=== PATIENT | male | born 1970 | race African-American/Black ===

== ENCOUNTER 2018-11-05 13:27 | Inpatient (IN) | payer OTHER ==
[2018-11-05 15:29] VITALS: BMI 20.2
--- NOTE | 2018-11-05 17:27 | HP ---
CIWA Score Nausea/Vomitin Muscle Tremors: 2 Anxiety: 2 Agitation: 3 Paroxysmal Sweats: 2 Orientation: 0-Oriented Tacttile Disturbances: 1-Very Mild Itch/Numbness Auditory Disturbances: 0-None Visual Disturbances: 1-Very Mild Sensitivity Headache: 3-Moderate (5/10 temporal) CIWA-Ar Total Score: 17 - Admission Criteria OASAS Guidelines: Admission for Medically Managed Detox: Requires at least one of the followin. CIWA greater than 12 2. Seizures within the past 24 hours 3. Delirium tremens within the past 24 hours 4. Hallucinations within the past 24 hours 5. Acute intervention needed for co occurring medical disorder 6. Acute intervention needed for co occurring psychiatric disorder 7. Severe withdrawal that cannot be handled at a lower level of care (continued vomiting, continued diarrhea, abnormal vital signs) requiring intravenous medication and/or fluids 8. Patient presents the following: CIWA greater than 12, Acute intervention needed for co-occurring med or psych disorder Admission Criteria Met: Admission criteria met Admission ROS S - [facility] Chief Complaint: alcohol withdrawal symptoms Allergies/Adverse Reactions: Allergies Allergy/AdvReac Type Severity Reaction Status Date / Time No Known Allergies Allergy Verified 11/05/18 15:23 History of Present Illness: 48 yo male with hx of alcohol dependence is here seeking detox d/t withdrawal symptoms, reports mandated to attended detox. Last detox treatment at [facility] three months ago. HTN : non-compliant with meds Psych: anxiety, no prior treatment Reports hx of ETOH blackouts with last episode one month ago. Denies hx of seizures. Denies SI /HI at this time Exam Limitations: No Limitations - Ebola screening Have you traveled outside of the country in the last 21 days: No Have you had contact with anyone from an Ebola affected area: No Do you have a fever: No - Review of Systems Constitutional: Chills, Diaphoresis, Changes in sleep, Unintentional Wgt. Loss EENT: reports: No Symptoms Reported Respiratory: reports: No Symptoms reported Cardiac: reports: No Symptoms Reported GI: reports: Diarrhea, Nausea, Poor Appetite, Poor Fluid Intake, Vomiting : reports: No Symptoms Reported Musculoskeletal: reports: Joint Pain Integumentary: reports: Other (r) Neuro: reports: Headache Endocrine: reports: No Symptoms Reported Hematology: reports: No Symptoms Reported Psychiatric: reports: Orientated x3, Agitated, Anxious Other Systems: Reviewed and Negative Patient History - Patient Medical History Hx Anemia: No Hx Asthma: No Hx Chronic Obstructive Pulmonary Disease (COPD): No Hx Cancer: No Hx Cardiac Disorders: No Hx Congestive Heart Failure: No Hx Hypertension: Yes (non-compliant with meds ) Hx Hypercholesterolemia: No Hx Pacemaker: No HX Cerebrovascular Accident: No Hx Seizures: No Hx Dementia: No Hx Diabetes: No Hx Gastrointestinal Disorders: No Hx Liver Disease: No Hx Genitourinary Disorders: No Hx Sexually Transmitted Disorders: No Hx Renal Disease (ESRD): No Hx Thyroid Disease: No Hx Human Immunodeficiency Virus (HIV): No Hx Hepatitis C: No Hx Depression: No Hx Suicide Attempt: No Hx Bipolar Disorder: No Hx Schizophrenia: No - Patient Surgical History Past Surgical History: Yes Hx Appendectomy: Yes - PPD History Previous Implant?: No Documented Results: Negative w/o proof PPD to be Administered?: Yes - Smoking Cessation Smoking history: Current every day smoker Have you smoked in the past 12 months: Yes Aproximately how many cigarettes per day: 10 Hx Chewing Tobacco Use: No Initiated information on smoking cessation: Yes 'Breaking Loose' booklet given: 11/05/18 - Substance & Tx. History Hx Alcohol Use: Yes Hx Substance Use: Yes Substance Use Type: Alcohol Hx Substance Use Treatment: Yes (Last detox treatment at [facility] three months ago. ) - Substances abused Alcohol Substance route: Oral Frequency: 3-6 times per week Amount used: 2 pt. vodka, 1 case beers ( 12 oz cans) Age of first use: 21 Date of last use: 11/05/18 Family Disease History - Family Disease History Family Disease History: Heart Disease: Grandparent (HTN), Father (HTN), Mother ( HTN ) Admission Physical Exam S - Vital Signs Vital Signs: Vital Signs - 24 hr 11/05/18 15:24 Temperature 98 F Pulse Rate 87 Respiratory 18 Rate Blood Pressure 175/120 H - Physical General Appearance: Yes: Appropriately Dressed, Mild Distress, Irritable, Anxious HEENTM: Yes: EOMI, Hearing grossly Normal, Normal ENT Inspection, Normocephalic , Normal Voice, BRYANT, Pharynx Normal, Tm's normal Respiratory: Yes: Chest Non-Tender, Lungs Clear, Normal Breath Sounds, No Respiratory Distress, No Accessory Muscle Use Neck: Yes: Within Normal Limits Breast: Yes: Breast Exam Deferred Cardiology: Yes: Regular Rhythm, Regular Rate Abdominal: Yes: Normal Bowel Sounds, Non Tender, Flat, Soft, Other (+ abdominal hernia retractable) Genitourinary: Yes: Within Normal Limits Back: Yes: Normal Inspection Musculoskeletal: Yes: full range of Motion, Gait Steady, Pelvis Stable Extremities: Yes: Normal Capillary Refill, Normal Inspection, Normal Range of Motion, Non-Tender Neurological: Yes: glassware finisher II-XII NML intact, Fully Oriented, Alert, Motor Strength 5/5, Depressed Affect Integumentary: Yes: Normal Color, Warm, Diaphoresis Lymphatic: Yes: Within Normal Limits - Diagnostic (1) Alcohol dependence with uncomplicated withdrawal Current Visit: Yes Status: Acute (2) Essential (primary) hypertension Current Visit: Yes Status: Chronic (3) Nicotine dependence Current Visit: Yes Status: Acute Qualifiers: Nicotine product type: cigarettes Cleared for Admission S - Detox or Rehab [facility] Level of Care: Medically Managed Detox Regimen/Protocol: Librium Breathalyzer - Breathalyzer Breathalyzer: 0.020 Urine Drug Screen - Test Device Lot number: [id number] Expiration date: 06/08/20 - Control Is test valid?: Yes - Results Drug screen NEGATIVE: No Urine drug screen results: BZO-Benzodiazepines Inpatient Rehab Admission - Rehab Decision to Admit Inpatient rehab admission?: No
[2018-11-05] MEDS ORDERED: chlordiazePOXIDE HCL 25 MG CAPSULE PO PRN (17:32)
[2018-11-05] MEDS ORDERED: MENTHOL/PHENOL 1 EACH UD MM PRN (17:32)
[2018-11-05] MEDS ORDERED: hydrOXYzine PAMOATE 25 MG CAPSULE (FP) PO PRN (17:32)
[2018-11-05] MEDS ORDERED: IBUPROFEN 400 MG TABLET (FP) PO PRN (17:32)
[2018-11-05] MEDS ORDERED: METHOCARBAMOL 500 MG TABLET PO PRN (17:32)
[2018-11-05] MEDS ORDERED: NICOTINE POLACRILEX 2 MG GUM BUC PRN (17:32)
[2018-11-05] MEDS ORDERED: ACETAMINOPHEN 325 MG TABLET (FP) PO PRN ×2 (17:32)
[2018-11-05] MEDS ORDERED: ONDANSETRON *ODT* 4 MG TABLET SL PRN (17:32)
[2018-11-05] MEDS ORDERED: BISMUTH SUBSALICYLATE 524 MG/30 ML UD PO PRN (17:32)
[2018-11-05] MEDS ORDERED: MAGNESIUM HYDROX 2400MG/30ML ORAL SUSPENSION 30 ML CUP PO PRN (17:32)
[2018-11-05] MEDS ORDERED: MELATONIN 5 MG TABLETS PO PRN (17:32)
[2018-11-05] MEDS ORDERED: MAG HYDROX/AL HYDROX/SIMETH 30 ML UNIT-DOSE CUP PO PRN (17:32)
[2018-11-05] MEDS ORDERED: MAGNESIUM CITRATE 300 ML BOTTLE PO PRN (17:32)
[2018-11-05] MEDS ORDERED: cloNIDine HCL 0.1 MG TABLET PO ONE (18:00)
[2018-11-05] MEDS ORDERED: THIAMINE HCL 100 MG TABLET (FP) PO SCH (22:00)
[2018-11-05] MEDS: cloNIDine HCL 0.1 MG TABLET PO SCH (22:48)
[2018-11-05] MEDS: GABAPENTIN 100 MG CAPSULE (FP) PO SCH (22:49)
[2018-11-05] MEDS: chlordiazePOXIDE HCL 25 MG CAPSULE PO SCH (22:50)
[2018-11-05] MEDS ORDERED: chlordiazePOXIDE HCL 25 MG CAPSULE PO SCH (23:00)
[2018-11-05] MEDS: HYDROCHLOROTHIAZIDE 25 MG TABLET (FP) PO SCH (23:38)
[2018-11-06 02:21] LABS: URINE APPEARANCE CLEAR; URINE BILIRUBIN NEGATIVE (NEGATIVE); URINE COLOR YELLOW; URINE GLUCOSE (UA) 1+ (NEGATIVE); URINE KETONE NEGATIVE (NEGATIVE); URINE LEUK ESTERASE NEGATIVE (NEGATIVE); URINE NITRITE NEGATIVE (NEGATIVE); URINE PROTEIN TRACE (NEGATIVE); URINE UROBILINOGEN 0.2 mg/dL (0.2-1.0)
[2018-11-06] MEDS: HYDROCHLOROTHIAZIDE 25 MG TABLET (FP) PO SCH (06:07)
[2018-11-06] MEDS: chlordiazePOXIDE HCL 25 MG CAPSULE PO SCH ×2 (06:07→10:21)
[2018-11-06] MEDS: GABAPENTIN 100 MG CAPSULE (FP) PO SCH (06:07)
--- NOTE | 2018-11-06 08:32 | EKG ---
Test Reason : Blood Pressure : / mmHG Vent. Rate : 069 BPM Atrial Rate : 069 BPM P-R Int : 132 ms QRS Dur : 086 ms QT Int : 434 ms P-R-T Axes : 063 020 048 degrees QTc Int : 465 ms NORMAL SINUS RHYTHM VOLTAGE CRITERIA FOR LEFT VENTRICULAR HYPERTROPHY ABNORMAL ECG NO PREVIOUS ECGS AVAILABLE Confirmed by MD MARIA R, CORI ([id number]) on 11/06/2018 8:32:25 AM Referred By: Confirmed By:CORI HECK MD
[2018-11-06 09:14] VITALS: BP 140/94; PULSE 82; TEMP 98.3
[2018-11-06 09:56] LABS: ALBUMIN 3.6 g/dl (3.4-5.0); ALK PHOS 59 U/L (45-117); ANION GAP 5 MMOL/L (8-16); BILIRUBIN,TOTAL 0.9 mg/dL (0.2-1); BLOOD UREA NITROGEN 18 mg/dL (7-18); CALCIUM 9.4 mg/dL (8.5-10.1); CHLORIDE 102 mmol/L (98-107); CO2 32 mmol/L (21-32); CREATININE 1.3 mg/dL (0.55-1.3); GLUCOSE,RANDOM 126 mg/dL (74-106); SGOT/AST 24 U/L (15-37); SGPT/ALT 18 U/L (13-61); SODIUM 138 mmol/L (136-145); TOT PROT 7.1 g/dl (6.4-8.2)
[2018-11-06 09:57] LABS: HEMATOCRIT 41.2 % (35.4-49); MCH 33.8 pg (25.7-33.7); MCHC 34.1 g/dl (32.0-35.9); MEAN CELL VOLUME 99.2 fl (80-96); MEAN PLT VOLUME 7.7 fl (7.5-11.1); PLATELET COUNT 334 K/MM3 (134-434); RBC 4.15 M/mm3 (4.00-5.60); RDW 13.9 % (11.9-15.9); WHITE BLOOD COUNT 9.4 K/mm3 (4.0-10.0)
[2018-11-06] MEDS ORDERED: NICOTINE 14 MG/24 HOURS TOPICAL PATCH TD SCH (10:00)
[2018-11-06] MEDS ORDERED: PRENATAL VITAMINS W/ FOLIC ACID TABLET (FP) PO SCH (10:00)
[2018-11-06] MEDS: cloNIDine HCL 0.1 MG TABLET PO SCH (10:21)
--- NOTE | 2018-11-06 12:50 | DS ---
[facility] Detox Discharge Summary Admission Date: 11/05/18 Discharge Date: 11/06/18 - History Present History: Alcohol Dependence Additional Comments: 48 years old male admitted on 11/05/18 for alcohol withdrawal stabilization patient's friend enter to patient's room, enforce unit rule and regulation patient is aggressive threatening toward staff counselor dual rate supervisor, nursing dual rate supervisor, security staff, team met with the patient an urgent discharge is necessary for this time in order to maintain the safety of the staff and patients as well as therapeutic environment. patient is alert no acute distress that he wants to go back to the court to discuss his mandatory act with the strategic partnership manager. - Physical Exam Results Vital Signs: Vital Signs Temperature 98.3 F 11/06/18 09:14 Pulse Rate 82 11/06/18 09:14 Respiratory Rate 18 11/06/18 09:14 Blood Pressure 140/94 11/06/18 09:14 O2 Sat by Pulse Oximetry (%) Pertinent Admission Physical Exam Findings: alcohol withdrawal sx Laboratory Last Values WBC 9.4 K/mm3 (4.0-10.0) 11/06/18 07:00 RBC 4.15 M/mm3 (4.00-5.60) 11/06/18 07:00 Hgb 14.0 GM/dL (11.7-16.9) 11/06/18 07:00 Hct 41.2 % (35.4-49) 11/06/18 07:00 MCV 99.2 fl (80-96) H 11/06/18 07:00 MCH 33.8 pg (25.7-33.7) H 11/06/18 07:00 MCHC 34.1 g/dl (32.0-35.9) 11/06/18 07:00 RDW 13.9 % (11.9-15.9) 11/06/18 07:00 Plt Count 334 K/MM3 (134-434) 11/06/18 07:00 MPV 7.7 fl (7.5-11.1) 11/06/18 07:00 Sodium 138 mmol/L (136-145) 11/06/18 07:00 Potassium 4.0 mmol/L (3.5-5.1) 11/06/18 07:00 Chloride 102 mmol/L (98-107) 11/06/18 07:00 Carbon Dioxide 32 mmol/L (21-32) 11/06/18 07:00 Anion Gap 5 MMOL/L (8-16) L 11/06/18 07:00 BUN 18 mg/dL (7-18) 11/06/18 07:00 Creatinine 1.3 mg/dL (0.55-1.3) 11/06/18 07:00 Creat Clearance w eGFR 59.43 (>60) 11/06/18 07:00 Random Glucose 126 mg/dL (74-106) H 11/06/18 07:00 Calcium 9.4 mg/dL (8.5-10.1) 11/06/18 07:00 Total Bilirubin 0.9 mg/dL (0.2-1) 11/06/18 07:00 AST 24 U/L (15-37) 11/06/18 07:00 ALT 18 U/L (13-61) 11/06/18 07:00 Alkaline Phosphatase 59 U/L (45-117) 11/06/18 07:00 Total Protein 7.1 g/dl (6.4-8.2) 11/06/18 07:00 Albumin 3.6 g/dl (3.4-5.0) 11/06/18 07:00 Urine Color Yellow 11/05/18 22:30 Urine Appearance Clear 11/05/18 22:30 Urine pH 7.0 (5.0-8.0) 11/05/18 22:30 Ur Specific [facility] 1.020 (1.010-1.035) 11/05/18 22:30 Urine Protein Trace (NEGATIVE) 11/05/18 22:30 Urine Glucose (UA) 1+ (NEGATIVE) H 11/05/18 22:30 Urine Ketones Negative (NEGATIVE) 11/05/18 22:30 Urine Blood Negative (NEGATIVE) 11/05/18 22:30 Urine Nitrite Negative (NEGATIVE) 11/05/18 22:30 Urine Bilirubin Negative (NEGATIVE) 11/05/18 22:30 Urine Urobilinogen 0.2 mg/dL (0.2-1.0) 11/05/18 22:30 Ur Leukocyte Esterase Negative (NEGATIVE) 11/05/18 22:30 lab noted - Treatment Hospital Course: Detox Protocol Followed, Responded well Patient has Accepted a Rehab Referral to: community self help health services - Medication Discharge Medications: Ambulatory Orders Clonidine HCl 0.1 mg PO DAILY 11/05/18 - Diagnosis (1) Alcohol dependence with uncomplicated withdrawal Current Visit: Yes Status: Acute (2) Nicotine dependence Current Visit: Yes Status: Acute Qualifiers: Nicotine product type: cigarettes Substance use status: in withdrawal Qualified Code(s): F17.213 - Nicotine dependence, cigarettes, with withdrawal (3) Essential (primary) hypertension Current Visit: Yes Status: Chronic - AMA Did Patient Leave Against Medical Advice: No
--- NOTE | 2018-11-06 14:25 | CONSULT ---
[facility] Psychiatric Consult - Data Date of interview: 11/06/18 Admission source: [facility] Identifying data: Not available for psychiatric examination. Mr Land was apparently discharged earlier. See staff's notes for details.
[2018-11-06] MEDS ORDERED: chlordiazePOXIDE HCL 25 MG CAPSULE PO SCH (23:00)
[2018-11-07] MEDS ORDERED: chlordiazePOXIDE HCL 10 MG CAPSULE PO SCH (23:00)
[2018-11-07] MEDS ORDERED: chlordiazePOXIDE HCL 10 MG CAPSULE PO PRN (23:00)
[2018-11-08] MEDS ORDERED: chlordiazePOXIDE HCL 10 MG CAPSULE PO SCH (23:00)
== END 2018-11-06 12:43 | disposition left against medical advice (07) | DRG 775 ==
LOC: YASAS 13:27 → Y3N 17:43
PROVIDERS: ADMIT Surgery; ATTEND Surgery
PROC: HZ2ZZZZ Detoxification Services for Substance Abuse Treatment (ICD-10-PCS; principal; 2018-11-05)
DX: F10.230 Alcohol dependence with withdrawal, uncomplicated (principal); F17.213 Nicotine dependence, cigarettes, with withdrawal; F41.9 Anxiety disorder, unspecified; I10 Essential (primary) hypertension; Z59.0 Homelessness
CPT/HCPCS: 36415; 80053; 81003; 85027; 86593; 93005; 93010; J0735